=== PATIENT | female | born 1950 | race Two or more races ===

== ENCOUNTER → 2016-06-14 | Day surgery (SDC) | payer OTHER ==
[~2016-06-14] MED LIST: FENTANYL PF 100 MCG/2 ML VIAL. IV PRN; HYDROMORPHONE 2 MG/ML VIAL. IV PRN; IV RINGERS,LACTATED 1000ML 1,000 ML IV SCH; LIDOCAINE 1% 1 ML SYRINGE. ID PRN; MORPHINE SULFATE 2 MG/ML DISP.SYRIN. IV PRN; NITR100C PO; OMEP20CA9 PO; ONDANSETRON PF 4 MG/2 ML VIAL. IV PRN; PROCHLORPERAZINE 10 MG/2 ML VIAL. IV PRN; PROPOFOL 20 ML IV ONE
[2016-06-14 08:31] VITALS: BP 100/60
== END | disposition home or self-care (01) ==
LOC: SURG 06:37
PROVIDERS: ATTEND Internal Medicine Gastroenterology
DX: Z12.11 Encounter for screening for malignant neoplasm of colon (principal); K64.0 First degree hemorrhoids; K29.40 Chronic atrophic gastritis without bleeding; K31.84 Gastroparesis; K90.0 Celiac disease; K86.1 Other chronic pancreatitis; Z72.89 Other problems related to lifestyle; F17.210 Nicotine dependence, cigarettes, uncomplicated
CPT/HCPCS: 36415; 43235; 45378; 82607; J2704

== ENCOUNTER → 2016-06-21 | Outpatient (CLI) | payer OTHER ==
[2016-06-14 08:31] VITALS: BP 100/60
[~2016-06-21] MED LIST changes: -FENTANYL PF 100 MCG/2 ML VIAL. IV PRN; -HYDROMORPHONE 2 MG/ML VIAL. IV PRN; +IOHEXOL 240 MG/ML 50ML VIAL. PO ONE; +IOHEXOL 300 MG/ML 75 ML VIAL IV ONE; -IV RINGERS,LACTATED 1000ML 1,000 ML IV SCH; -LIDOCAINE 1% 1 ML SYRINGE. ID PRN; -MORPHINE SULFATE 2 MG/ML DISP.SYRIN. IV PRN; -ONDANSETRON PF 4 MG/2 ML VIAL. IV PRN; -PROCHLORPERAZINE 10 MG/2 ML VIAL. IV PRN; -PROPOFOL 20 ML IV ONE
--- NOTE | 2016-06-21 12:23 | RAD ---
Indication unexplained weight loss. Assess for potential occult malignancy. Axial images through the abdomen and pelvis were obtained. Both oral and IV contrast were administered. 75 cc of Omnipaque 300 was administered intravenously. No prior CT imaging is available. The lung bases are clear. A significant finding involving the liver is not seen. There is a small, approximately 6 mm, low-density mass in the medial segment the left lobe of the liver. This likely reflects an incidental cyst. The spleen appears unremarkable. The gallbladder is grossly normal. There are no adrenal masses and the kidneys appear unremarkable. The pancreas appears normal. A mass inflammatory process or acute finding within the abdomen is not seen. In the pelvis no focal mass or inflammatory process is seen. There is no significant adenopathy seen in the abdomen or pelvis. IUD is noted. There are some mild degenerative changes seen in the lumbar spine. IMPRESSION: No acute or significant finding seen in the abdomen or pelvis PQRS Compliance Statement: One or more of the following individualized dose reduction techniques were utilized for this examination: 1. Automated exposure control 2. Adjustment of the mA and/or kV according to patient size 3. Use of iterative reconstruction technique
== END | disposition home or self-care (01) ==
LOC: CT 09:50
PROVIDERS: ATTEND Internal Medicine Gastroenterology
DX: R63.4 Abnormal weight loss (principal)
CPT/HCPCS: 74177; Q9966; Q9967

== ENCOUNTER → 2016-10-17 | Outpatient (CLI) | payer OTHER ==
[2016-06-14 08:31] VITALS: BP 100/60
[~2016-10-17] MED LIST changes: -IOHEXOL 240 MG/ML 50ML VIAL. PO ONE; -IOHEXOL 300 MG/ML 75 ML VIAL IV ONE
--- NOTE | 2016-10-17 14:58 | KCIC ---
Two views lumbar spine Indication: Reason For Study Reason: NEUROPATHY / Spl. Instructions: / History: FINDINGS There is dextroscoliotic curvature of the thoracolumbar junction. Subtle retrolisthesis is noted of L3 on L4. No compression fracture or deformity. There is mild disc height loss at all levels. Facet arthropathy is noted at L5-S1. SI joints are open and corticated. An intrauterine contraceptive device overlies the pelvic inlet. Impression: - multilevel degenerative disc disease without evidence for compression fracture. Electronically signed by: Roosevelt Condon (October 17, 2016 14:56:42)
== END | disposition home or self-care (01) ==
LOC: KCIC 13:28
PROVIDERS: ATTEND Family Medicine
DX: G62.9 Polyneuropathy, unspecified (principal)
CPT/HCPCS: 72100

== ENCOUNTER 2018-01-28 19:43 | Emergency (ER) | payer OTHER ==
[2016-06-14 08:31] VITALS: BP 100/60
--- NOTE | 2018-01-28 20:37 | PHYS DOC ---
Past Medical History Past Medical History: No Pertinent History Past Surgical History: No Surgical History Alcohol Use: None Drug Use: None Adult General Chief Complaint Chief Complaint: LOWEREXTREMITY INJURY [facility] HPI Patient is a 67 year old female who presents with injury to the bilateral LE' s. The patient was walking her dog 2 days earlier. The dog was large and took off running after something. The patient's feet were tangled in the dog's leash. The leash was wrapped around her bilateral lower legs. She sustained a laceration and abrasion bilaterally. She presents to the ER today complaining of worsening pain and swelling bilateral lower extremities. Although the symptoms are in both right and left, the left is severely worse compared to the right. She's had worsening swelling, warmth to touch, local erythema, and pain. The pain has become too bad so that she feels that she cannot weight bear on the left leg. Last tetanus was last year. Review of Systems Review of Systems Constitutional: Denies fever Eyes: Denies change in visual acuity Respiratory: Denies cough or shortness of breath Cardiovascular: No additional information not addressed in HPI GI: Denies abdominal pain : Denies dysuria or hematuria Musculoskeletal: Denies back pain Integument: Denies rash or skin lesions Neurologic: Denies headache Endocrine: Denies polyuria All other systems were reviewed and found to be within normal limits, except as documented in this note. Current Medications Current Medications Current Medications Medications (Trade) Dose Ordered [facility] Start Time Stop Time Status Last Admin Dose Admin Acetaminophen/ Hydrocodone Bitart (Lortab 7.5/325) 1 tab STK-MED ONCE 01/28/18 23:16 01/29/18 00:41 DC Clindamycin Phosphate 50 ml @ 100 mls/hr 1X ONCE 01/28/18 20:45 01/28/18 23:47 DC Morphine Sulfate (Morphine Sulfate) 4 mg 1X ONCE 01/28/18 20:45 01/28/18 20:46 DC Allergies Allergies Allergies Coded Allergies Type Severity Reaction Last Updated Verified No Known Drug Allergies 06/14/16 No Physical Exam Physical Exam Constitutional: Well developed, well nourished, no acute distress, non-toxic appearance HENT: Normocephalic, atraumatic, bilateral external ears normal Eyes: PERRLA, EOMI, conjunctiva normal Neck: Normal range of motion, no tenderness Cardiovascular:Heart rate regular rhythm, no murmur Lungs & Thorax: Bilateral breath sounds clear to auscultation Abdomen: Bowel sounds normal Skin: Warm, dry, no erythema, no rash Extremities: Edema, local fever, erythema over the left lower extremity over the ankle and distal leg. There is a linear abrasion which is to the skin into the subcutaneous tissue but is partially healed. There is also a linear abrasion over the right lower extremity. The right lower extremity is also warm to touch and mildly erythematous but not as bad as the left. Neurologic: Alert and oriented X 3 Psychologic: Affect normal Current Patient Data Lab Values Laboratory Tests Test 01/28/18 20:30 Sodium Level 141 mmol/L (136-145) Potassium Level 3.1 mmol/L (3.5-5.1) L Chloride Level 107 mmol/L (98-107) Carbon Dioxide Level 27 mmol/L (21-32) Anion Gap 7 (6-14) Blood Urea Nitrogen 8 mg/dL (7-20) Creatinine 0.7 mg/dL (0.6-1.0) Estimated GFR (Cockcroft-Gault) 83.2 Glucose Level 100 mg/dL (70-99) H Calcium Level 8.6 mg/dL (8.5-10.1) Laboratory Tests 01/28/18 20:30 EKG EKG [] Radiology/Procedures Radiology/Procedures no fracture seen Course & Med Decision Making Course & Med Decision Making Pertinent Labs and Imaging studies reviewed. (See chart for details) 20:25: Patient is examined. X-rays are ordered. Her physical exam is suspicious for cellulitis. CBC and BMP are ordered along with blood cultures. 23:00: Patient was evaluated for probable cellulitis in the left lower extremity. She was given a dose of IV clindamycin in the emergency department. Her blood was tested and her white blood cell count was not elevated. Her chemistry panel was normal. Blood cultures were collected. The patient was given the option of admission for IV antibiotics versus discharge home on by mouth antibiotics and return to the ER tomorrow for recheck. The patient opted for discharge home. She is given clindamycin to take at home along with [place] for severe pain. The patient will come back to the ER in 24 hours and I will see her at that time. If she is worsening, she'll be admitted. 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 Dragon Disclaimer Dragon Disclaimer This electronic medical record was generated, in whole or in part, using a voice recognition dictation system. Departure Departure Referrals: SHAHANA IVEY MD (PCP) JASMINE CA DO Jan 28, 2018 20:37
[2018-01-28] MEDS ORDERED: MORPHINE SULFATE 4 MG/ML VIAL. IV ONE (20:45)
[2018-01-28] MEDS ORDERED: CLINDAMYCIN 600MG PREMIX 50 ML IV ONE (20:45)
[2018-01-28] MEDS ORDERED: HYDROcodone/APAP 7.5/325MG 1 TAB TABLET ONE (23:16)
[2018-01-29 00:42] LABS: CALCIUM 8.6 mg/dL (8.5-10.1); CREATININE 0.7 mg/dL (0.6-1.0); GFR 83.2; POTASSIUM 3.1 mmol/L (3.5-5.1)
[2018-01-29 01:34] LABS: BASO # 0.1 x10^3/uL (0.0-0.2); BASO % 0 % (0-3); EOS # 0.1 x10^3/uL (0.0-0.7); EOS % 1 % (0-3); HEMATOCRIT 38.6 % (36.0-47.0); HEMOGLOBIN 13.2 g/dL (12.0-15.5); LYMPH # 2.3 x10^3/uL (1.0-4.8); LYMPH % 22 % (24-48); MEAN CORPUSCULAR HEMOGLOBIN 35 pg (25-35); MEAN CORPUSCULAR HGB CONC 34 g/dL (31-37); MEAN CORPUSCULAR VOLUME 101 fL (79-100); MONO # 0.9 x10^3/uL (0.0-1.1); MONO % 9 % (0-9); NEUT # 6.9 x10^3uL (1.8-7.7); NEUT % 68 % (31-73); PLATELET COUNT 304 x10^3/uL (140-400); RED BLOOD COUNT 3.82 x10^6/uL (3.50-5.40); RED CELL DISTRIBUTION WIDTH 14.6 % (11.5-14.5); WHITE BLOOD COUNT 10.2 x10^3/uL (4.0-11.0)
--- NOTE | 2018-01-29 08:08 | RAD ---
Left tibia and fibula, 2 views, 01/28/2018: HISTORY: Pain and swelling after a fall No fracture is identified. There is diffuse subcutaneous edema. IMPRESSION: No acute bony abnormality is detected. Left ankle, 3 views, 01/28/2018: There is moderate diffuse soft tissue swelling, most prominent laterally. No acute fracture or dislocation is identified. IMPRESSION: No acute bony abnormality is detected. Right tibia and fibula, 2 views, 01/28/2018: No fracture is identified. There is mild subcutaneous edema. IMPRESSION: No acute bony abnormality is detected. Electronically signed by: Yossi Mcfadden MD (01/29/2018 8:05 AM) [facility]
[2018-01-30] MEDS ORDERED: SULF1TAB24 PO (13:11)
== END 2018-01-29 04:23 | disposition home or self-care (01) ==
LOC: ER 19:43
DX: S80.811A Abrasion, right lower leg, initial encounter (principal); S89.82XA Other specified injuries of left lower leg, initial encounter; R60.0 Localized edema; R50.9 Fever, unspecified; X58.XXXA Exposure to other specified factors, initial encounter; Y93.K1 Activity, walking an animal; Y92.89 Other specified places as the place of occurrence of the external cause; Y99.8 Other external cause status
CPT/HCPCS: 36415; 73590; 73610; 80048; 85025; 87040; 99285-25

== ENCOUNTER 2019-04-24 15:40 | Emergency (ER) | payer OTHER ==
[~2019-04-24] VITALS: Ht 162.6 cm; Wt 70.3 kg
[~2019-04-24 15:40] MED LIST changes: +OMEP20CA10 PO; -OMEP20CA9 PO; +SULF1TAB24 PO
[2019-04-24 16:01] VITALS: BP 166/80
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
[2019-04-24] MEDS ORDERED: HYDR-3164 PO (16:42)
[2019-04-24] MEDS ORDERED: ORPH100T PO (16:42)
[2019-04-24] MEDS ORDERED: IBUP-1007 PO (16:42)
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
== END 2019-04-24 16:54 | disposition home or self-care (01) ==
LOC: ER 15:40
DX: M54.2 Cervicalgia (principal); M54.6 Pain in thoracic spine; R51 Headache; V29.49XA Motorcycle driver injured in collision with other motor vehicles in traffic accident, initial encounter; Y93.I9 Activity, other involving external motion; Y92.488 Other paved roadways as the place of occurrence of the external cause; Y99.8 Other external cause status
CPT/HCPCS: 70450; 72125; 99284-25